=== PATIENT | male | born 1950 | race Two or more races ===

== ENCOUNTER 2020-05-10 14:41 | Inpatient (IN) | payer MEDICAID, OTHER ==
[~2020-05-10] VITALS: Ht 180.3 cm; Wt 67.4 kg
[2020-05-10] MEDS ORDERED: ACETAMINOPHEN 650MG SUPP PR PRN (15:00)
[2020-05-10] MEDS ORDERED: LACTATED RINGERS 1,800 ML IV ONE (15:00)
[2020-05-10] MEDS ORDERED: CEFTRIAXONE 1 G PREMIX 50 ML IV ONE (15:45)
[2020-05-10 16:39] LABS: CHLORIDE 106 mEq/L (98-107)
[2020-05-10 16:41] LABS: BASOPHILS % 0.6 % (0.0-2.0); HEMATOCRIT. 36.1 % (42.0-52.0); HEMOGLOBIN. 12.2 g/dL (14.0-18.0); MEAN CORPUSCULAR HEMOGLOBIN 30.9 pg (28.0-32.0); MEAN CORPUSCULAR VOLUME 91.5 fL (80.0-94.0); MEAN PLATELET VOLUME 9.4 fl (7.4-10.4); MONOCYTES % 13.3 % (2.0-8.0); NEUTROPHILS % 76.1 % (40.0-76.0); PLATELET 122 x1000/uL (130-400); RED BLOOD CELL COUNT 3.95 mill/uL (4.7-6.1); RED CELL DISTRIBUTION WIDTH 17.7 % (11.6-14.6)
[2020-05-10 16:44] LABS: ETHANOL BLOOD < 10 mg/dL
[2020-05-10 16:45] LABS: INR 1.2; PARTIAL THROMBOPLASTIN TIME 33.6 sec (23.4-31.0); PROTHROMBIN TIME 12.4 sec (9.6-11.0)
[2020-05-10 18:04] LABS: CLARITY URINE CLEAR (CLEAR); COLOR URINE YELLOW (YELLOW); KETONES URINE NEGATIVE (NEGATIVE); LEUKOCYTE ESTERASE URINE 2+ (NEGATIVE); NITRITE URINE POSITIVE (NEGATIVE); OCCULT BLOOD URINE NEGATIVE (NEGATIVE); PH URINE 5.5 (4.5-8.0); PROTEIN URINE NEGATIVE (NEGATIVE)
[2020-05-10 18:23] LABS: *AMPHETAMINES SCREEN URINE NEGATIVE (NEGATIVE); CANNABINOID URINE SCREEN NEGATIVE (NEGATIVE)
[2020-05-10 18:24] LABS: *BARBITURATES SCREEN URINE NEGATIVE (NEGATIVE); *BENZODIAZEPINES SCREEN URINE NEGATIVE (NEGATIVE); *COCAINE SCREEN URINE NEGATIVE (NEGATIVE); METHADONE URINE SCREEN NEGATIVE (NEGATIVE)
[2020-05-10 18:25] LABS: OPIATES URINE SCREEN NEGATIVE (NEGATIVE); PHENCYCLIDINE URINE SCREEN NEGATIVE (NEGATIVE)
[2020-05-10] MEDS ORDERED: PIPERACILLIN/TAZOBACTAM 3.375GM/50ML PREMIX IV ONE (18:30)
[2020-05-10] MEDS ORDERED: VANCOMYCIN 1 G PREMIX 200 ML IV NR (19:00)
[2020-05-10] MEDS ORDERED: PIPERACILLIN/TAZ 3.375G PREMIX 50 ML IV NR (19:00)
[2020-05-11] MEDS ORDERED: DOCUSATE SODIUM 100MG CAPSULE PO PRN
[2020-05-11] MEDS ORDERED: HYDROCODONE/ACETAMINOPHEN 5/325MG TABLET PO PRN
[2020-05-11] MEDS ORDERED: IPRATROPIUM/ALBUTEROL 0.5-3(2.5)MG/3ML NEB HHN PRN
[2020-05-11] MEDS ORDERED: LEVOFLOXACIN 500MG PREMIX 100 ML IV NR (01:00)
[2020-05-11] MEDS: ENOXAPARIN 30MG/0.3ML SYR SUBCUT SCH (03:55)
[2020-05-11 06:06] LABS: HEMATOCRIT. 36.1 % (42.0-52.0); HEMOGLOBIN. 12.3 g/dL (14.0-18.0); MEAN CORPUSCULAR HEMOGLOBIN 31.1 pg (28.0-32.0); MEAN CORPUSCULAR VOLUME 91.2 fL (80.0-94.0); MEAN PLATELET VOLUME 9.1 fl (7.4-10.4); PLATELET 108 x1000/uL (130-400); RED BLOOD CELL COUNT 3.96 mill/uL (4.7-6.1); RED CELL DISTRIBUTION WIDTH 17.8 % (11.6-14.6)
[2020-05-11 06:16] LABS: CHLORIDE 105 mEq/L (98-107)
[2020-05-11 06:25] LABS: LDL CHOLESTEROL 26 mg/dL (5-100); PHOSPHORUS 3.1 mg/dL (2.5-4.9)
[2020-05-11 06:26] LABS: HDL CHOLESTEROL 72 mg/dL (40-59)
[2020-05-11 08:35] LABS: PLATELET ESTIMATE SLIGHTLY DECREASED
[2020-05-11] MEDS: PANTOPRAZOLE SODIUM 40 MG/VIAL IV SCH (10:04)
[2020-05-11 13:34] LABS: CARCINO EMBRYONIC ANTIGEN 2.1 ng/ml; PROSTRATE SPECIFIC AG TOTAL 1.96 ng/mL (0.0-4.0)
[2020-05-12] VITALS (7 sets, daily range): BP systolic 89–108; BP diastolic 60–77
[2020-05-12] MEDS: LEVOFLOXACIN 250MG PREMIX 50 ML IV SCH (02:34)
[2020-05-12] MEDS: ENOXAPARIN 30MG/0.3ML SYR SUBCUT SCH (02:34)
[2020-05-12 06:19] LABS: BASOPHILS % 0.4 % (0.0-2.0); HEMATOCRIT. 36.6 % (42.0-52.0); HEMOGLOBIN. 12.5 g/dL (14.0-18.0); LYMPHOCYTES % 7.6 % (20.0-50.0); MEAN CORPUSCULAR HEMOGLOBIN 31.2 pg (28.0-32.0); MEAN CORPUSCULAR VOLUME 91.7 fL (80.0-94.0); MEAN PLATELET VOLUME 10.7 fl (7.4-10.4); MONOCYTES % 7.8 % (2.0-8.0); NEUTROPHILS % 84.2 % (40.0-76.0); PLATELET 91 x1000/uL (130-400); RED BLOOD CELL COUNT 3.99 mill/uL (4.7-6.1); RED CELL DISTRIBUTION WIDTH 17.6 % (11.6-14.6)
[2020-05-12 06:29] LABS: CHLORIDE 104 mEq/L (98-107)
[2020-05-12 06:40] LABS: TOTAL IRON BINDING CAPACITY 235 ug/dL (250-450)
[2020-05-12 07:05] LABS: VITAMIN B12 SERUM 1540 pg/mL (211-911)
[2020-05-12] MEDS: PANTOPRAZOLE SODIUM 40 MG/VIAL IV SCH (08:52)
[2020-05-12] MEDS ORDERED: DEPER5 MT (14:13)
[2020-05-12] MEDS ORDERED: ATOR10TA69 MT (14:13)
[2020-05-12] MEDS ORDERED: TERA10CA4 MT (14:13)
[2020-05-12] MEDS ORDERED: LEVE10006 PO (14:13)
[2020-05-12] MEDS ORDERED: TAMS-11 MT (14:13)
[2020-05-13] VITALS: BP 111/60
[2020-05-13] MEDS: LEVOFLOXACIN 250MG PREMIX 50 ML IV SCH (00:17)
[2020-05-13] MEDS: ENOXAPARIN 30MG/0.3ML SYR SUBCUT SCH (00:18)
[2020-05-13 04:00] VITALS: BP 110/70
[2020-05-13 06:54] LABS: BASOPHILS % 0.6 % (0.0-2.0); HEMATOCRIT. 34.6 % (42.0-52.0); HEMOGLOBIN. 11.8 g/dL (14.0-18.0); LYMPHOCYTES % 17.7 % (20.0-50.0); MEAN CORPUSCULAR VOLUME 90.6 fL (80.0-94.0); MONOCYTES % 8.5 % (2.0-8.0); NEUTROPHILS % 73.2 % (40.0-76.0); PLATELET 106 x1000/uL (130-400); RED BLOOD CELL COUNT 3.82 mill/uL (4.7-6.1); RED CELL DISTRIBUTION WIDTH 17.1 % (11.6-14.6)
[2020-05-13 06:59] LABS: CHLORIDE 106 mEq/L (98-107)
[2020-05-13 08:00] VITALS: BP 104/66
[2020-05-13] MEDS: PANTOPRAZOLE SODIUM 40 MG/VIAL IV SCH (09:23)
[2020-05-13 12:00] VITALS: BP 99/63
[2020-05-13] MEDS: DEXAMETHASONE 2MG TABLET PO SCH (12:33)
[2020-05-13 16:00] VITALS: BP 100/67
[2020-05-13 20:00] VITALS: BP 100/77
[2020-05-14] VITALS: BP 120/70
[2020-05-14] MEDS: LEVOFLOXACIN 250MG PREMIX 50 ML IV SCH (00:28)
[2020-05-14] MEDS: ENOXAPARIN 30MG/0.3ML SYR SUBCUT SCH (00:28)
[2020-05-14 04:00] VITALS: BP 110/70
[2020-05-14 08:00] VITALS: BP 100/61
[2020-05-14 09:40] LABS: HEMATOCRIT. 34.4 % (42.0-52.0); MEAN CORPUSCULAR HEMOGLOBIN 31.7 pg (28.0-32.0); MEAN CORPUSCULAR VOLUME 90.9 fL (80.0-94.0); MEAN PLATELET VOLUME 9.8 fl (7.4-10.4); PLATELET 126 x1000/uL (130-400); RED BLOOD CELL COUNT 3.78 mill/uL (4.7-6.1); RED CELL DISTRIBUTION WIDTH 17.4 % (11.6-14.6)
[2020-05-14] MEDS: DEXAMETHASONE 2MG TABLET PO SCH (10:08)
[2020-05-14] MEDS: PANTOPRAZOLE SODIUM 40 MG/VIAL IV SCH (10:09)
[2020-05-14 10:38] LABS: CHLORIDE 106 mEq/L (98-107)
[2020-05-14 11:32] LABS: PLATELET ESTIMATE SLIGHTLY DECREASED
[2020-05-14 12:00] VITALS: BP 100/61
[2020-05-14 16:00] VITALS: BP 100/65
[2020-05-14] MEDS: FERROUS SULFATE 325MG TABLET PO SCH (19:39)
[2020-05-14 20:00] VITALS: BP 109/72
[2020-05-15] VITALS: BP 133/71
[2020-05-15] MEDS: LEVOFLOXACIN 250MG PREMIX 50 ML IV SCH (00:44)
[2020-05-15] MEDS ORDERED: ENOXAPARIN 40MG/0.4ML SYR SUBCUT SCH (01:00)
[2020-05-15 04:00] VITALS: BP 101/66
[2020-05-15 08:00] VITALS: BP 100/64
[2020-05-15] MEDS: DEXAMETHASONE 2MG TABLET PO SCH (10:09)
[2020-05-15] MEDS: PANTOPRAZOLE SODIUM 40 MG/VIAL IV SCH (10:09)
[2020-05-15] MEDS: FERROUS SULFATE 325MG TABLET PO SCH (10:09)
[2020-05-15 12:00] VITALS: BP 100/64
[2020-05-15 16:00] VITALS: BP 105/70
[2020-05-15] MEDS: ENOXAPARIN 40MG/0.4ML SYR SUBCUT SCH (21:34)
[2020-05-16] VITALS: BP 108/72
[2020-05-16] MEDS ORDERED: LORAZEPAM 2MG/ML CPJ IV PRN ×3 (04:45→13:15)
[2020-05-16] MEDS ORDERED: LORAZEPAM 2MG/ML CPJ ONE (04:48)
[2020-05-16] MEDS ORDERED: LORAZEPAM 2MG/ML CPJ IV NR ×2 (05:00→05:15)
[2020-05-16] MEDS ORDERED: LEVETIRACETAM 1,000 MG in SODIUM CHLORIDE 0.9% 100 ML IV SCH (06:00)
[2020-05-16] MEDS: ACETAMINOPHEN 650MG SUPP PR PRN ×4 (06:36→20:40)
[2020-05-16] MEDS: PANTOPRAZOLE 40MG DR TABLET PO SCH (07:10)
[2020-05-16 08:00] VITALS: BP 154/92
[2020-05-16] MEDS: FERROUS SULFATE 325MG TABLET PO SCH (09:00)
[2020-05-16] MEDS: DEXAMETHASONE 2MG TABLET PO SCH (09:00)
[2020-05-16 12:00] VITALS: BP 147/87
[2020-05-16 13:52] LABS: CHLORIDE 103 mEq/L (98-107)
[2020-05-16] MEDS ORDERED: PIPERACILLIN/TAZOBACTAM 3.375 G/VIAL IV SCH (14:00)
[2020-05-16] MEDS: PIPERACILLIN/TAZOBACTAM 3.375 G in DEXT 5% WATER 100 ML IV SCH ×2 (14:22→22:43)
[2020-05-16] MEDS ORDERED: VANCOMYCIN 1250MG in DEXTROSE 5% WATER 250ML IV NR (15:00)
[2020-05-16 16:00] VITALS: BP 128/74
[2020-05-16] MEDS: ATORVASTATIN CALCIUM 10MG TABLET PO SCH (17:00)
[2020-05-16] MEDS: DIVALPROEX SODIUM 500MG DR TABLET PO SCH (17:00)
[2020-05-16 17:09] LABS: HEMATOCRIT. 35.9 % (42.0-52.0); MEAN CORPUSCULAR HEMOGLOBIN 30.6 pg (28.0-32.0); MEAN CORPUSCULAR VOLUME 91.3 fL (80.0-94.0); MEAN PLATELET VOLUME 9.8 fl (7.4-10.4); PLATELET 196 x1000/uL (130-400); RED BLOOD CELL COUNT 3.93 mill/uL (4.7-6.1); RED CELL DISTRIBUTION WIDTH 17.6 % (11.6-14.6)
[2020-05-16 18:18] LABS: PLATELET ESTIMATE NORMAL
[2020-05-16 20:00] VITALS: BP_SYST 88; BP_SYST 94; BP_DIAS 54; BP_DIAS 59
[2020-05-16] MEDS ORDERED: LEVETIRACETAM 500MG TABLET PO SCH (21:00)
[2020-05-16] MEDS: LEVETIRACETAM 1,500 MG in SODIUM CHLORIDE 0.9% 100 ML IV SCH (21:42)
[2020-05-16] MEDS: ENOXAPARIN 40MG/0.4ML SYR SUBCUT SCH (21:42)
[2020-05-16 22:13] LABS: BG BASE EXCESS 3.6 mmol/L (-2.0-2.0); BG CARBOXYHEMOGLOBIN 0.3 % (0.5-1.5); BG DEOXYHEMOGLOBIN 16.4 % (0.0-5.0); BG FRACTION INSPIRED OXYGEN 100; BG HCO3 ACT 27.4 mmol/L (22.0-26.0); BG METHEMOGLOBIN 0.3 % (0.0-1.5); BG OXYGEN SATURATION 83.5 % (92.0-98.5); BG PCO2 38.5 mmHg (35.0-45.0); BG PO2 44.1 mmHg (75.0-100.0); BG SAMPLE SITE RIGHT RADIAL; BG TOTAL HEMOGLOBIN 12.6 g/dL (12.0-18.0); BG VENT MODE MASK - NRB
[2020-05-16] MEDS: VANCOMYCIN 1 G PREMIX 200 ML IV SCH (22:43)
[2020-05-17] VITALS (24 sets, daily range): BP systolic 88–122; BP diastolic 32–91
[2020-05-17] MEDS: PANTOPRAZOLE 40MG DR TABLET PO SCH (06:30)
[2020-05-17] MEDS: PIPERACILLIN/TAZOBACTAM 3.375 G in DEXT 5% WATER 100 ML IV SCH ×3 (06:53→23:47)
[2020-05-17] MEDS: DEXAMETHASONE 2MG TABLET PO SCH (09:00)
[2020-05-17] MEDS: DIVALPROEX SODIUM 500MG DR TABLET PO SCH ×2 (09:00→17:00)
[2020-05-17] MEDS: FERROUS SULFATE 325MG TABLET PO SCH (09:00)
[2020-05-17] MEDS: TAMSULOSIN HCL 0.4MG SR CAPSULE PO SCH (09:00)
[2020-05-17] MEDS ORDERED: PHENYLEPHRINE 50 MG in DEXT 5% WATER 245 ML IV PRN (10:00)
[2020-05-17] MEDS ORDERED: LIDOCAINE HCL 1% 20ML VIAL (Pyxis) INJ ONE (10:51)
[2020-05-17] MEDS: LEVETIRACETAM 1,500 MG in SODIUM CHLORIDE 0.9% 100 ML IV SCH ×2 (11:14→22:22)
[2020-05-17] MEDS: SODIUM CHLORIDE 0.9% 1,000 ML IV SCH (11:16)
[2020-05-17] MEDS: VANCOMYCIN 1 G PREMIX 200 ML IV SCH (13:12)
[2020-05-17] MEDS: ATORVASTATIN CALCIUM 10MG TABLET PO SCH (17:00)
[2020-05-17 18:55] LABS: HEMATOCRIT. 42.8 % (42.0-52.0); MEAN CORPUSCULAR HEMOGLOBIN 30.4 pg (28.0-32.0); MEAN CORPUSCULAR VOLUME 93.2 fL (80.0-94.0); PLATELET 252 x1000/uL (130-400); RED BLOOD CELL COUNT 4.59 mill/uL (4.7-6.1); RED CELL DISTRIBUTION WIDTH 17.9 % (11.6-14.6)
[2020-05-17 18:56] LABS: CHLORIDE 106 mEq/L (98-107)
[2020-05-17 19:20] LABS: PLATELET ESTIMATE NORMAL
[2020-05-17] MEDS: ENOXAPARIN 40MG/0.4ML SYR SUBCUT SCH (21:44)
[2020-05-17] MEDS: ACETAMINOPHEN 650MG SUPP PR PRN (21:44)
[2020-05-18] VITALS (7 sets, daily range): BP systolic 105–142; BP diastolic 60–82
[2020-05-18] MEDS: VANCOMYCIN 1 G PREMIX 200 ML IV SCH ×2 (00:20→12:28)
[2020-05-18] MEDS: SODIUM CHLORIDE 0.9% 1,000 ML IV SCH ×2 (00:24→14:40)
[2020-05-18] MEDS: PANTOPRAZOLE 40MG DR TABLET PO SCH (06:08)
[2020-05-18 06:31] LABS: HEMATOCRIT. 30.6 % (42.0-52.0); HEMOGLOBIN. 10.2 g/dL (14.0-18.0); MEAN CORPUSCULAR HEMOGLOBIN 30.3 pg (28.0-32.0); MEAN CORPUSCULAR VOLUME 90.7 fL (80.0-94.0); MEAN PLATELET VOLUME 9.4 fl (7.4-10.4); PLATELET 258 x1000/uL (130-400); RED BLOOD CELL COUNT 3.38 mill/uL (4.7-6.1); RED CELL DISTRIBUTION WIDTH 17.4 % (11.6-14.6)
[2020-05-18 07:06] LABS: CHLORIDE 109 mEq/L (98-107)
[2020-05-18] MEDS: PIPERACILLIN/TAZOBACTAM 3.375 G in DEXT 5% WATER 100 ML IV SCH ×3 (07:24→23:04)
[2020-05-18 08:09] LABS: BG BASE EXCESS 0.1 mmol/L (-2.0-2.0); BG CARBOXYHEMOGLOBIN 0.1 % (0.5-1.5); BG FRACTION INSPIRED OXYGEN 100; BG HCO3 ACT 23.1 mmol/L (22.0-26.0); BG METHEMOGLOBIN 0.2 % (0.0-1.5); BG OXYHEMOGLOBIN 96.7 % (94.0-97.0); BG PCO2 32.3 mmHg (35.0-45.0); BG PH 7.473 (7.350-7.450); BG PO2 88.8 mmHg (75.0-100.0); BG SAMPLE SITE LEFT RADIAL; BG TOTAL HEMOGLOBIN 11.4 g/dL (12.0-18.0); BG TOTAL RESPIRATORY RATE 23 b/min; BG VENT MODE MASK - BIPAP
[2020-05-18 08:19] LABS: VALPROIC ACID < 3.0 ug/mL (50-100)
[2020-05-18 08:28] LABS: PLATELET ESTIMATE NORMAL
[2020-05-18] MEDS: TAMSULOSIN HCL 0.4MG SR CAPSULE PO SCH ×2 (09:00→10:51)
[2020-05-18] MEDS: FERROUS SULFATE 325MG TABLET PO SCH (09:05)
[2020-05-18] MEDS: LEVETIRACETAM 1,500 MG in SODIUM CHLORIDE 0.9% 100 ML IV SCH ×2 (09:05→22:04)
[2020-05-18] MEDS: DEXAMETHASONE 2MG TABLET PO SCH (09:05)
[2020-05-18] MEDS: DIVALPROEX SODIUM 500MG DR TABLET PO SCH ×2 (09:05→17:26)
[2020-05-18] MEDS ORDERED: DEXT 5%/0.45% NACL 500ML 500 ML IV ONE (15:00)
[2020-05-18] MEDS: ATORVASTATIN CALCIUM 10MG TABLET PO SCH (17:26)
[2020-05-18] MEDS: ENOXAPARIN 40MG/0.4ML SYR SUBCUT SCH (22:04)
[2020-05-18] MEDS: FAMOTIDINE 20MG TABLET PO SCH (22:04)
[2020-05-18] MEDS: ACETAMINOPHEN 650MG SUPP PR PRN (23:12)
[2020-05-19] VITALS: BP 107/74
[2020-05-19] MEDS: VANCOMYCIN 1 G PREMIX 200 ML IV SCH ×2 (00:46→12:33)
[2020-05-19 04:00] VITALS: BP 99/75
[2020-05-19] MEDS: PIPERACILLIN/TAZOBACTAM 3.375 G in DEXT 5% WATER 100 ML IV SCH ×3 (07:10→22:57)
[2020-05-19] MEDS: FAMOTIDINE 20MG TABLET PO SCH ×2 (07:11→21:52)
[2020-05-19 08:00] VITALS: BP 117/79
[2020-05-19 08:45] LABS: CHLORIDE 109 mEq/L (98-107)
[2020-05-19] MEDS: DEXAMETHASONE 2MG TABLET PO SCH (08:48)
[2020-05-19] MEDS: FERROUS SULFATE 325MG TABLET PO SCH (08:48)
[2020-05-19] MEDS: LEVETIRACETAM 1,500 MG in SODIUM CHLORIDE 0.9% 100 ML IV SCH ×2 (08:48→21:52)
[2020-05-19] MEDS: DIVALPROEX SODIUM 500MG DR TABLET PO SCH ×2 (08:48→17:47)
[2020-05-19] MEDS: TAMSULOSIN HCL 0.4MG SR CAPSULE PO SCH (08:51)
[2020-05-19 08:56] LABS: BASOPHILS % 0.3 % (0.0-2.0); EOSINOPHILS % 0.1 % (0.0-5.0); HEMATOCRIT. 29.9 % (42.0-52.0); LYMPHOCYTES % 8.2 % (20.0-50.0); MEAN CORPUSCULAR HEMOGLOBIN 30.4 pg (28.0-32.0); MEAN CORPUSCULAR VOLUME 91.1 fL (80.0-94.0); MEAN PLATELET VOLUME 8.8 fl (7.4-10.4); MONOCYTES % 3.1 % (2.0-8.0); NEUTROPHILS % 88.3 % (40.0-76.0); PLATELET 347 x1000/uL (130-400); RED BLOOD CELL COUNT 3.28 mill/uL (4.7-6.1); RED CELL DISTRIBUTION WIDTH 17.4 % (11.6-14.6)
[2020-05-19 12:00] VITALS: BP 124/84
[2020-05-19] MEDS ORDERED: VANCOMYCIN 1250MG in DEXTROSE 5% WATER 250ML IV SCH (14:00)
[2020-05-19 16:00] VITALS: BP 112/79
[2020-05-19] MEDS: ATORVASTATIN CALCIUM 10MG TABLET PO SCH (17:47)
[2020-05-19] MEDS: LAMOTRIGINE 25MG TABLET PO SCH (17:47)
[2020-05-19 20:00] VITALS: BP 115/75
[2020-05-19] MEDS: ENOXAPARIN 40MG/0.4ML SYR SUBCUT SCH (21:51)
[2020-05-20] VITALS: BP 121/73
[2020-05-20 04:00] VITALS: BP 114/75
[2020-05-20] MEDS: FAMOTIDINE 20MG TABLET PO SCH ×2 (06:34→21:45)
[2020-05-20] MEDS: PIPERACILLIN/TAZOBACTAM 3.375 G in DEXT 5% WATER 100 ML IV SCH ×3 (06:35→23:34)
[2020-05-20 08:00] VITALS: BP 110/74
[2020-05-20] MEDS: FERROUS SULFATE 325MG TABLET PO SCH (09:30)
[2020-05-20] MEDS: DEXAMETHASONE 2MG TABLET PO SCH (09:31)
[2020-05-20] MEDS: TAMSULOSIN HCL 0.4MG SR CAPSULE PO SCH (09:31)
[2020-05-20] MEDS: LAMOTRIGINE 25MG TABLET PO SCH (09:31)
[2020-05-20] MEDS: DIVALPROEX SODIUM 500MG DR TABLET PO SCH ×2 (09:31→16:30)
[2020-05-20] MEDS: LEVETIRACETAM 1,500 MG in SODIUM CHLORIDE 0.9% 100 ML IV SCH ×2 (09:36→21:45)
[2020-05-20 11:05] LABS: HEMATOCRIT. 29.4 % (42.0-52.0); HEMOGLOBIN. 9.9 g/dL (14.0-18.0); MEAN CORPUSCULAR HEMOGLOBIN 30.8 pg (28.0-32.0); MEAN CORPUSCULAR VOLUME 91.2 fL (80.0-94.0); MEAN PLATELET VOLUME 8.6 fl (7.4-10.4); PLATELET 367 x1000/uL (130-400); RED BLOOD CELL COUNT 3.23 mill/uL (4.7-6.1); RED CELL DISTRIBUTION WIDTH 16.7 % (11.6-14.6)
[2020-05-20 11:15] LABS: CHLORIDE 109 mEq/L (98-107)
[2020-05-20 12:00] VITALS: BP 120/83
[2020-05-20 16:00] VITALS: BP 124/84
[2020-05-20] MEDS: ATORVASTATIN CALCIUM 10MG TABLET PO SCH (16:30)
[2020-05-20 20:33] VITALS: BP 120/76
[2020-05-20] MEDS: ENOXAPARIN 40MG/0.4ML SYR SUBCUT SCH (21:45)
[2020-05-21 00:15] VITALS: BP 126/76
[2020-05-21 04:00] VITALS: BP 113/68
[2020-05-21] MEDS: FAMOTIDINE 20MG TABLET PO SCH ×2 (06:24→20:25)
[2020-05-21] MEDS: PIPERACILLIN/TAZOBACTAM 3.375 G in DEXT 5% WATER 100 ML IV SCH (06:25)
[2020-05-21 06:55] LABS: PLATELET ESTIMATE NORMAL
[2020-05-21 07:24] LABS: CHLORIDE 109 mEq/L (98-107)
[2020-05-21 07:41] LABS: HEMATOCRIT. 29.6 % (42.0-52.0); HEMOGLOBIN. 10.4 g/dL (14.0-18.0); MEAN CORPUSCULAR HEMOGLOBIN 32.2 pg (28.0-32.0); MEAN CORPUSCULAR VOLUME 91.1 fL (80.0-94.0); MEAN PLATELET VOLUME 9.1 fl (7.4-10.4); PLATELET 366 x1000/uL (130-400); RED BLOOD CELL COUNT 3.25 mill/uL (4.7-6.1); RED CELL DISTRIBUTION WIDTH 17.1 % (11.6-14.6)
[2020-05-21 08:00] VITALS: BP 113/72
[2020-05-21 08:19] LABS: BG BASE EXCESS 1.9 mmol/L (-2.0-2.0); BG CARBOXYHEMOGLOBIN 0.3 % (0.5-1.5); BG DEOXYHEMOGLOBIN 8.3 % (0.0-5.0); BG FRACTION INSPIRED OXYGEN 100; BG HCO3 ACT 25.2 mmol/L (22.0-26.0); BG METHEMOGLOBIN 0.1 % (0.0-1.5); BG OXYGEN SATURATION 91.7 % (92.0-98.5); BG OXYHEMOGLOBIN 91.3 % (94.0-97.0); BG PCO2 34.4 mmHg (35.0-45.0); BG PH 7.482 (7.350-7.450); BG PO2 64.5 mmHg (75.0-100.0); BG SAMPLE SITE RIGHT RADIAL; BG TOTAL HEMOGLOBIN 10.2 g/dL (12.0-18.0); BG VENT MODE MASK - BIPAP
[2020-05-21] MEDS: LEVETIRACETAM 1,500 MG in SODIUM CHLORIDE 0.9% 100 ML IV SCH ×2 (09:07→21:44)
[2020-05-21] MEDS: DIVALPROEX SODIUM 500MG DR TABLET PO SCH ×2 (09:08→17:24)
[2020-05-21] MEDS: LAMOTRIGINE 25MG TABLET PO SCH (09:08)
[2020-05-21] MEDS: DEXAMETHASONE 2MG TABLET PO SCH (09:08)
[2020-05-21] MEDS: FERROUS SULFATE 325MG TABLET PO SCH (09:08)
[2020-05-21] MEDS: TAMSULOSIN HCL 0.4MG SR CAPSULE PO SCH (09:14)
[2020-05-21 12:00] VITALS: BP 111/71
[2020-05-21 13:51] LABS: PLATELET ESTIMATE NORMAL
[2020-05-21 16:00] VITALS: BP 96/67
[2020-05-21] MEDS: ATORVASTATIN CALCIUM 10MG TABLET PO SCH (17:24)
[2020-05-21 20:00] VITALS: BP 94/61
[2020-05-21] MEDS: ENOXAPARIN 40MG/0.4ML SYR SUBCUT SCH (20:26)
[2020-05-22] VITALS: BP 108/75
[2020-05-22 04:00] VITALS: BP_SYST 108; BP_SYST 120; BP_DIAS 75; BP_DIAS 78
[2020-05-22] MEDS: FAMOTIDINE 20MG TABLET PO SCH ×2 (07:04→21:45)
[2020-05-22 08:00] VITALS: BP 105/68
[2020-05-22] MEDS: FERROUS SULFATE 325MG TABLET PO SCH (08:55)
[2020-05-22] MEDS: DIVALPROEX SODIUM 500MG DR TABLET PO SCH ×2 (08:55→17:58)
[2020-05-22] MEDS: DEXAMETHASONE 2MG TABLET PO SCH (08:55)
[2020-05-22] MEDS: LAMOTRIGINE 25MG TABLET PO SCH (08:55)
[2020-05-22] MEDS: TAMSULOSIN HCL 0.4MG SR CAPSULE PO SCH (08:58)
[2020-05-22] MEDS: LEVETIRACETAM 1,500 MG in SODIUM CHLORIDE 0.9% 100 ML IV SCH ×2 (10:32→21:45)
[2020-05-22 12:00] VITALS: BP 113/72
[2020-05-22 16:00] VITALS: BP 103/73
[2020-05-22] MEDS: ATORVASTATIN CALCIUM 10MG TABLET PO SCH (17:59)
[2020-05-22 19:00] VITALS: BP 102/69
[2020-05-22] MEDS: ENOXAPARIN 40MG/0.4ML SYR SUBCUT SCH (21:53)
[2020-05-23] VITALS: BP 110/68
[2020-05-23 04:00] VITALS: BP 103/73
[2020-05-23] MEDS: FAMOTIDINE 20MG TABLET PO SCH ×2 (05:38→22:47)
[2020-05-23 08:00] VITALS: BP 107/70
[2020-05-23] MEDS: ACETAMINOPHEN 325MG TABLET PO PRN (08:13)
[2020-05-23] MEDS: DIVALPROEX SODIUM 500MG DR TABLET PO SCH ×2 (08:13→16:23)
[2020-05-23] MEDS: LAMOTRIGINE 25MG TABLET PO SCH (08:13)
[2020-05-23] MEDS: TAMSULOSIN HCL 0.4MG SR CAPSULE PO SCH (08:14)
[2020-05-23] MEDS: FERROUS SULFATE 325MG TABLET PO SCH (08:14)
[2020-05-23] MEDS: LEVETIRACETAM 1,500 MG in SODIUM CHLORIDE 0.9% 100 ML IV SCH ×2 (09:52→22:47)
[2020-05-23 12:00] VITALS: BP 99/64
[2020-05-23 16:00] VITALS: BP 98/64
[2020-05-23] MEDS: ATORVASTATIN CALCIUM 10MG TABLET PO SCH (16:26)
[2020-05-23 20:50] VITALS: BP 110/71
[2020-05-23] MEDS: ENOXAPARIN 40MG/0.4ML SYR SUBCUT SCH (22:47)
[2020-05-24 00:20] VITALS: BP 148/69
[2020-05-24 04:00] VITALS: BP 101/70
[2020-05-24] MEDS: FAMOTIDINE 20MG TABLET PO SCH ×2 (06:48→21:53)
[2020-05-24 08:00] VITALS: BP 99/71
[2020-05-24] MEDS: DIVALPROEX SODIUM 500MG DR TABLET PO SCH ×2 (08:38→16:19)
[2020-05-24] MEDS: LAMOTRIGINE 25MG TABLET PO SCH (08:38)
[2020-05-24] MEDS: FERROUS SULFATE 325MG TABLET PO SCH (08:38)
[2020-05-24] MEDS: TAMSULOSIN HCL 0.4MG SR CAPSULE PO SCH (08:39)
[2020-05-24] MEDS: LEVETIRACETAM 1,500 MG in SODIUM CHLORIDE 0.9% 100 ML IV SCH ×2 (09:21→21:53)
[2020-05-24 12:00] VITALS: BP 92/60
[2020-05-24 16:00] VITALS: BP 122/69
[2020-05-24] MEDS: ATORVASTATIN CALCIUM 10MG TABLET PO SCH (16:20)
[2020-05-24 20:00] VITALS: BP 114/73
[2020-05-24] MEDS: ENOXAPARIN 40MG/0.4ML SYR SUBCUT SCH (21:54)
[2020-05-25 00:35] VITALS: BP 118/67
[2020-05-25] MEDS: FAMOTIDINE 20MG TABLET PO SCH ×2 (06:37→21:31)
[2020-05-25 07:44] LABS: BASOPHILS % 0.3 % (0.0-2.0); EOSINOPHILS % 0.3 % (0.0-5.0); HEMATOCRIT. 31.4 % (42.0-52.0); HEMOGLOBIN. 10.6 g/dL (14.0-18.0); LYMPHOCYTES % 8.8 % (20.0-50.0); MEAN CORPUSCULAR HEMOGLOBIN 31.1 pg (28.0-32.0); MEAN PLATELET VOLUME 9.2 fl (7.4-10.4); MONOCYTES % 4.9 % (2.0-8.0); NEUTROPHILS % 85.7 % (40.0-76.0); PLATELET 171 x1000/uL (130-400); RED BLOOD CELL COUNT 3.41 mill/uL (4.7-6.1); RED CELL DISTRIBUTION WIDTH 16.9 % (11.6-14.6)
[2020-05-25 08:27] LABS: CHLORIDE 111 mEq/L (98-107)
[2020-05-25] MEDS: LAMOTRIGINE 25MG TABLET PO SCH (09:00)
[2020-05-25] MEDS: LEVETIRACETAM 1,500 MG in SODIUM CHLORIDE 0.9% 100 ML IV SCH ×2 (09:13→22:33)
[2020-05-25] MEDS: FERROUS SULFATE 325MG TABLET PO SCH (09:14)
[2020-05-25] MEDS: TAMSULOSIN HCL 0.4MG SR CAPSULE PO SCH (09:14)
[2020-05-25] MEDS: DIVALPROEX SODIUM 500MG DR TABLET PO SCH ×2 (09:14→16:34)
[2020-05-25 11:41] LABS: BG BASE EXCESS 3.1 mmol/L (-2.0-2.0); BG CARBOXYHEMOGLOBIN 0.2 % (0.5-1.5); BG DEOXYHEMOGLOBIN 2.9 % (0.0-5.0); BG FRACTION INSPIRED OXYGEN 80; BG HCO3 ACT 26.1 mmol/L (22.0-26.0); BG METHEMOGLOBIN 0.3 % (0.0-1.5); BG OXYGEN SATURATION 97.1 % (92.0-98.5); BG OXYHEMOGLOBIN 96.6 % (94.0-97.0); BG PCO2 33.8 mmHg (35.0-45.0); BG PH 7.505 (7.350-7.450); BG PO2 99.5 mmHg (75.0-100.0); BG SAMPLE SITE RIGHT RADIAL; BG TOTAL HEMOGLOBIN 10.2 g/dL (12.0-18.0); BG TOTAL RESPIRATORY RATE 18 b/min; BG VENT MODE MASK - BIPAP
[2020-05-25 12:00] VITALS: BP 124/73
[2020-05-25 16:00] VITALS: BP 102/66
[2020-05-25] MEDS: ATORVASTATIN CALCIUM 10MG TABLET PO SCH (16:34)
[2020-05-25 20:00] VITALS: BP 106/69
[2020-05-25] MEDS: ENOXAPARIN 40MG/0.4ML SYR SUBCUT SCH (21:31)
[2020-05-25] MEDS: ACETAMINOPHEN 325MG TABLET PO PRN (22:33)
[2020-05-26] VITALS: BP 124/83
[2020-05-26 04:30] VITALS: BP 125/81
[2020-05-26] MEDS: FAMOTIDINE 20MG TABLET PO SCH ×2 (05:59→21:40)
[2020-05-26 08:00] VITALS: BP 113/74
[2020-05-26] MEDS: FERROUS SULFATE 325MG TABLET PO SCH (11:06)
[2020-05-26] MEDS: TAMSULOSIN HCL 0.4MG SR CAPSULE PO SCH (11:06)
[2020-05-26] MEDS: DIVALPROEX SODIUM 500MG DR TABLET PO SCH ×2 (11:06→17:15)
[2020-05-26] MEDS: LAMOTRIGINE 25MG TABLET PO SCH (11:06)
[2020-05-26 12:00] VITALS: BP 117/97
[2020-05-26] MEDS: LEVETIRACETAM 1,500 MG in SODIUM CHLORIDE 0.9% 100 ML IV SCH ×2 (14:08→22:34)
[2020-05-26 16:00] VITALS: BP 121/82
[2020-05-26] MEDS: ATORVASTATIN CALCIUM 10MG TABLET PO SCH (17:15)
[2020-05-26 20:28] VITALS: BP 108/74
[2020-05-26] MEDS: ENOXAPARIN 40MG/0.4ML SYR SUBCUT SCH (21:40)
[2020-05-27 00:25] VITALS: BP 117/74
[2020-05-27 04:00] VITALS: BP 118/84
[2020-05-27] MEDS: FAMOTIDINE 20MG TABLET PO SCH ×2 (06:17→10:34)
[2020-05-27 08:00] VITALS: BP 113/82
[2020-05-27] MEDS: LAMOTRIGINE 25MG TABLET PO SCH (10:34)
[2020-05-27] MEDS: LEVETIRACETAM 1,500 MG in SODIUM CHLORIDE 0.9% 100 ML IV SCH ×2 (10:34→22:52)
[2020-05-27] MEDS: FERROUS SULFATE 325MG TABLET PO SCH (10:35)
[2020-05-27] MEDS: TAMSULOSIN HCL 0.4MG SR CAPSULE PO SCH (10:35)
[2020-05-27] MEDS: DIVALPROEX SODIUM 500MG DR TABLET PO SCH ×2 (10:42→17:54)
[2020-05-27] MEDS ORDERED: POTASSIUM CHLORIDE INJ 40 MEQ in DEXT 5% WATER 250 ML IV ONE (13:45)
[2020-05-27] MEDS: ATORVASTATIN CALCIUM 10MG TABLET PO SCH (17:54)
[2020-05-27 20:00] VITALS: BP 117/80
[2020-05-27 21:04] LABS: BASOPHILS % 0.6 % (0.0-2.0); EOSINOPHILS % 0.8 % (0.0-5.0); HEMATOCRIT. 26.1 % (42.0-52.0); HEMOGLOBIN. 8.6 g/dL (14.0-18.0); LYMPHOCYTES % 13.3 % (20.0-50.0); MEAN CORPUSCULAR HEMOGLOBIN 30.2 pg (28.0-32.0); MEAN CORPUSCULAR VOLUME 91.8 fL (80.0-94.0); MEAN PLATELET VOLUME 8.1 fl (7.4-10.4); NEUTROPHILS % 79.3 % (40.0-76.0); PLATELET 188 x1000/uL (130-400); RED BLOOD CELL COUNT 2.84 mill/uL (4.7-6.1); RED CELL DISTRIBUTION WIDTH 16.8 % (11.6-14.6)
[2020-05-27 21:14] LABS: CHLORIDE 117 mEq/L (98-107)
[2020-05-27] MEDS: ENOXAPARIN 40MG/0.4ML SYR SUBCUT SCH (22:01)
[2020-05-28] VITALS: BP 162/55
[2020-05-28 04:00] VITALS: BP 113/52
[2020-05-28 07:01] LABS: BASOPHILS % 0.6 % (0.0-2.0); EOSINOPHILS % 1.3 % (0.0-5.0); HEMATOCRIT. 27.8 % (42.0-52.0); HEMOGLOBIN. 9.5 g/dL (14.0-18.0); LYMPHOCYTES % 14.7 % (20.0-50.0); MEAN CORPUSCULAR HEMOGLOBIN 31.4 pg (28.0-32.0); MEAN CORPUSCULAR VOLUME 92.3 fL (80.0-94.0); MEAN PLATELET VOLUME 8.8 fl (7.4-10.4); MONOCYTES % 5.2 % (2.0-8.0); NEUTROPHILS % 78.2 % (40.0-76.0); PLATELET 184 x1000/uL (130-400); RED BLOOD CELL COUNT 3.01 mill/uL (4.7-6.1)
[2020-05-28] MEDS: FAMOTIDINE 20MG TABLET PO SCH ×2 (07:10→21:36)
[2020-05-28 07:16] LABS: CHLORIDE 116 mEq/L (98-107)
[2020-05-28 08:00] VITALS: BP 119/72
[2020-05-28] MEDS: LEVETIRACETAM 1,500 MG in SODIUM CHLORIDE 0.9% 100 ML IV SCH ×2 (08:51→21:36)
[2020-05-28] MEDS: FERROUS SULFATE 325MG TABLET PO SCH (08:52)
[2020-05-28] MEDS: TAMSULOSIN HCL 0.4MG SR CAPSULE PO SCH (08:52)
[2020-05-28] MEDS: DIVALPROEX SODIUM 500MG DR TABLET PO SCH ×2 (08:52→16:34)
[2020-05-28] MEDS: LAMOTRIGINE 25MG TABLET PO SCH (08:52)
[2020-05-28] MEDS: FUROSEMIDE 20MG/2ML VIAL IVP SCH (11:02)
[2020-05-28 11:55] LABS: BG BASE EXCESS 0.9 mmol/L (-2.0-2.0); BG CARBOXYHEMOGLOBIN 0.3 % (0.5-1.5); BG FRACTION INSPIRED OXYGEN 60; BG HCO3 ACT 24.1 mmol/L (22.0-26.0); BG METHEMOGLOBIN 0.2 % (0.0-1.5); BG OXYHEMOGLOBIN 95.5 % (94.0-97.0); BG PCO2 32.6 mmHg (35.0-45.0); BG PH 7.486 (7.350-7.450); BG PO2 84.6 mmHg (75.0-100.0); BG SAMPLE SITE RIGHT RADIAL; BG TOTAL HEMOGLOBIN 8.9 g/dL (12.0-18.0); BG TOTAL RESPIRATORY RATE 27 b/min; BG VENT MODE MASK - BIPAP
[2020-05-28 12:00] VITALS: BP 116/81
[2020-05-28 16:00] VITALS: BP 104/75
[2020-05-28] MEDS: ATORVASTATIN CALCIUM 10MG TABLET PO SCH (16:34)
[2020-05-28 20:00] VITALS: BP 132/89
[2020-05-28] MEDS: ENOXAPARIN 40MG/0.4ML SYR SUBCUT SCH (21:41)
[2020-05-29] VITALS: BP 126/71
[2020-05-29] MEDS: ACETAMINOPHEN 325MG TABLET PO PRN ×2 (01:33→12:54)
[2020-05-29 04:00] VITALS: BP 107/72
[2020-05-29] MEDS: FAMOTIDINE 20MG TABLET PO SCH ×2 (05:40→21:55)
[2020-05-29 06:30] LABS: BASOPHILS % 0.5 % (0.0-2.0); EOSINOPHILS % 1.5 % (0.0-5.0); HEMATOCRIT. 26.9 % (42.0-52.0); HEMOGLOBIN. 9.2 g/dL (14.0-18.0); MEAN CORPUSCULAR HEMOGLOBIN 32.1 pg (28.0-32.0); MEAN CORPUSCULAR VOLUME 93.3 fL (80.0-94.0); MEAN PLATELET VOLUME 8.6 fl (7.4-10.4); MONOCYTES % 4.5 % (2.0-8.0); NEUTROPHILS % 84.5 % (40.0-76.0); PLATELET 201 x1000/uL (130-400); RED BLOOD CELL COUNT 2.88 mill/uL (4.7-6.1); RED CELL DISTRIBUTION WIDTH 16.6 % (11.6-14.6)
[2020-05-29 07:07] LABS: CHLORIDE 114 mEq/L (98-107)
[2020-05-29 08:00] VITALS: BP 120/87
[2020-05-29] MEDS: DIVALPROEX SODIUM 500MG DR TABLET PO SCH ×2 (08:59→16:49)
[2020-05-29] MEDS: LAMOTRIGINE 25MG TABLET PO SCH (08:59)
[2020-05-29] MEDS: FERROUS SULFATE 325MG TABLET PO SCH (09:00)
[2020-05-29] MEDS: TAMSULOSIN HCL 0.4MG SR CAPSULE PO SCH (09:00)
[2020-05-29] MEDS: FUROSEMIDE 20MG/2ML VIAL IVP SCH (09:00)
[2020-05-29] MEDS: LEVETIRACETAM 1,500 MG in SODIUM CHLORIDE 0.9% 100 ML IV SCH ×2 (09:00→22:30)
[2020-05-29 12:00] VITALS: BP 108/81
[2020-05-29 16:00] VITALS: BP 108/77
[2020-05-29] MEDS: ATORVASTATIN CALCIUM 10MG TABLET PO SCH (16:49)
[2020-05-29] MEDS: CEFEPIME 1,000 MG in DEXTROSE 5% WATER 50 ML IV SCH (17:14)
[2020-05-29] MEDS: VANCOMYCIN 1 G PREMIX 200 ML IV SCH (17:15)
[2020-05-29 20:49] VITALS: BP 91/61
[2020-05-29] MEDS ORDERED: CEFEPIME HCL 1000MG/VIAL INJ IM SCH (21:00)
[2020-05-29] MEDS: ENOXAPARIN 40MG/0.4ML SYR SUBCUT SCH (21:56)
[2020-05-30] VITALS (7 sets, daily range): BP systolic 90–144; BP diastolic 58–69
[2020-05-30] MEDS: VANCOMYCIN 1 G PREMIX 200 ML IV SCH ×3 (00:12→18:25)
[2020-05-30] MEDS: CEFEPIME 1,000 MG in DEXTROSE 5% WATER 50 ML IV SCH ×2 (03:53→15:48)
[2020-05-30] MEDS: FAMOTIDINE 20MG TABLET PO SCH (07:07)
[2020-05-30] MEDS: DIVALPROEX SODIUM 500MG DR TABLET PO SCH ×2 (08:52→18:24)
[2020-05-30] MEDS: LEVETIRACETAM 1,500 MG in SODIUM CHLORIDE 0.9% 100 ML IV SCH (08:52)
[2020-05-30] MEDS: FERROUS SULFATE 325MG TABLET PO SCH (08:53)
[2020-05-30] MEDS: LAMOTRIGINE 25MG TABLET PO SCH (08:53)
[2020-05-30] MEDS: FUROSEMIDE 20MG/2ML VIAL IVP SCH (08:53)
[2020-05-30] MEDS: TAMSULOSIN HCL 0.4MG SR CAPSULE PO SCH (08:54)
[2020-05-30] MEDS: ATORVASTATIN CALCIUM 10MG TABLET PO SCH (17:00)
[2020-05-31] MEDS: ENOXAPARIN 40MG/0.4ML SYR SUBCUT SCH ×2 (01:32→21:29)
[2020-05-31] MEDS: FAMOTIDINE 20MG TABLET PO SCH ×3 (01:32→21:29)
[2020-05-31] MEDS: VANCOMYCIN 1 G PREMIX 200 ML IV SCH ×2 (01:46→09:18)
[2020-05-31 04:00] VITALS: BP 92/68
[2020-05-31] MEDS: CEFEPIME 1,000 MG in DEXTROSE 5% WATER 50 ML IV SCH (04:00)
[2020-05-31] MEDS: LEVETIRACETAM 1,500 MG in SODIUM CHLORIDE 0.9% 100 ML IV SCH ×3 (06:23→22:36)
[2020-05-31 08:00] VITALS: BP 97/61
[2020-05-31] MEDS: LAMOTRIGINE 25MG TABLET PO SCH (09:19)
[2020-05-31] MEDS: FERROUS SULFATE 325MG TABLET PO SCH (09:19)
[2020-05-31] MEDS: DIVALPROEX SODIUM 500MG DR TABLET PO SCH ×2 (09:19→17:28)
[2020-05-31] MEDS: TAMSULOSIN HCL 0.4MG SR CAPSULE PO SCH (09:19)
[2020-05-31] MEDS: FUROSEMIDE 20MG/2ML VIAL IVP SCH (09:20)
[2020-05-31 10:23] LABS: CHLORIDE 105 mEq/L (98-107)
[2020-05-31] MEDS: LINEZOLID 600 MG PREMIX 300 ML IV SCH ×2 (15:37→23:43)
[2020-05-31 16:00] VITALS: BP 95/57
[2020-05-31] MEDS: ATORVASTATIN CALCIUM 10MG TABLET PO SCH (17:29)
[2020-05-31 20:00] VITALS: BP 99/65
[2020-06-01] VITALS: BP 105/69
[2020-06-01 04:00] VITALS: BP 102/69
[2020-06-01] MEDS: FAMOTIDINE 20MG TABLET PO SCH ×2 (05:40→21:50)
[2020-06-01] MEDS: LAMOTRIGINE 25MG TABLET PO SCH (08:32)
[2020-06-01] MEDS: FUROSEMIDE 20MG/2ML VIAL IVP SCH (08:32)
[2020-06-01] MEDS: FERROUS SULFATE 325MG TABLET PO SCH (08:32)
[2020-06-01] MEDS: DIVALPROEX SODIUM 500MG DR TABLET PO SCH ×2 (08:32→16:52)
[2020-06-01] MEDS: LEVETIRACETAM 1,500 MG in SODIUM CHLORIDE 0.9% 100 ML IV SCH ×2 (08:56→22:45)
[2020-06-01] MEDS: TAMSULOSIN HCL 0.4MG SR CAPSULE PO SCH (09:00)
[2020-06-01 12:00] VITALS: BP 81/53
[2020-06-01] MEDS: LINEZOLID 600 MG PREMIX 300 ML IV SCH (12:25)
[2020-06-01 16:00] VITALS: BP 96/71
[2020-06-01] MEDS: ATORVASTATIN CALCIUM 10MG TABLET PO SCH (16:52)
[2020-06-01 20:00] VITALS: BP 93/59
[2020-06-01] MEDS: ENOXAPARIN 40MG/0.4ML SYR SUBCUT SCH (21:50)
[2020-06-01] MEDS: ACETAMINOPHEN 325MG TABLET PO PRN (21:51)
[2020-06-02] VITALS: BP 92/55
[2020-06-02] MEDS: LINEZOLID 600 MG PREMIX 300 ML IV SCH ×3 (00:01→23:41)
[2020-06-02 04:00] VITALS: BP 90/53
[2020-06-02] MEDS: FAMOTIDINE 20MG TABLET PO SCH ×2 (05:54→20:58)
[2020-06-02 08:00] VITALS: BP 98/70
[2020-06-02] MEDS: DIVALPROEX SODIUM 500MG DR TABLET PO SCH ×2 (08:44→16:03)
[2020-06-02] MEDS: LEVETIRACETAM 1,500 MG in SODIUM CHLORIDE 0.9% 100 ML IV SCH ×2 (08:45→21:25)
[2020-06-02] MEDS: FERROUS SULFATE 325MG TABLET PO SCH (08:45)
[2020-06-02] MEDS: FUROSEMIDE 20MG/2ML VIAL IVP SCH (08:45)
[2020-06-02] MEDS: LAMOTRIGINE 25MG TABLET PO SCH (08:45)
[2020-06-02 12:00] VITALS: BP 89/64
[2020-06-02] MEDS: TAMSULOSIN HCL 0.4MG SR CAPSULE PO SCH (12:38)
[2020-06-02 16:00] VITALS: BP 91/71
[2020-06-02] MEDS: ATORVASTATIN CALCIUM 10MG TABLET PO SCH (16:02)
[2020-06-02 20:00] VITALS: BP 87/56
[2020-06-02] MEDS ORDERED: SODIUM CHLORIDE 0.9% 500 ML IV ONE (20:30)
[2020-06-02] MEDS: ENOXAPARIN 40MG/0.4ML SYR SUBCUT SCH (20:58)
[2020-06-03] VITALS: BP 93/57
[2020-06-03 04:00] VITALS: BP 90/55
[2020-06-03] MEDS: FAMOTIDINE 20MG TABLET PO SCH ×2 (05:58→22:31)
[2020-06-03 08:00] VITALS: BP 95/62
[2020-06-03] MEDS: TAMSULOSIN HCL 0.4MG SR CAPSULE PO SCH (08:17)
[2020-06-03] MEDS: DIVALPROEX SODIUM 500MG DR TABLET PO SCH ×2 (08:18→16:38)
[2020-06-03] MEDS: FUROSEMIDE 20MG/2ML VIAL IVP SCH (08:18)
[2020-06-03] MEDS: FERROUS SULFATE 325MG TABLET PO SCH (08:18)
[2020-06-03] MEDS: LAMOTRIGINE 25MG TABLET PO SCH (08:18)
[2020-06-03] MEDS: LEVETIRACETAM 1,500 MG in SODIUM CHLORIDE 0.9% 100 ML IV SCH ×2 (10:52→22:32)
[2020-06-03 12:00] VITALS: BP 91/60
[2020-06-03] MEDS: LINEZOLID 600 MG PREMIX 300 ML IV SCH (13:01)
[2020-06-03 16:00] VITALS: BP 100/69
[2020-06-03] MEDS: ATORVASTATIN CALCIUM 10MG TABLET PO SCH (16:38)
[2020-06-03 20:00] VITALS: BP 96/64
[2020-06-03] MEDS: ENOXAPARIN 40MG/0.4ML SYR SUBCUT SCH (21:00)
[2020-06-03] MEDS: LINEZOLID 600MG TABLET PO SCH (22:31)
[2020-06-04] VITALS: BP 90/58
[2020-06-04 04:30] VITALS: BP 94/68
[2020-06-04] MEDS: FAMOTIDINE 20MG TABLET PO SCH ×2 (05:47→21:00)
[2020-06-04 08:00] VITALS: BP 114/71
[2020-06-04] MEDS: FERROUS SULFATE 325MG TABLET PO SCH (10:07)
[2020-06-04] MEDS: LEVETIRACETAM 1,500 MG in SODIUM CHLORIDE 0.9% 100 ML IV SCH ×2 (10:07→21:00)
[2020-06-04] MEDS: LINEZOLID 600MG TABLET PO SCH ×2 (10:08→21:00)
[2020-06-04] MEDS: DIVALPROEX SODIUM 500MG DR TABLET PO SCH ×2 (10:08→16:49)
[2020-06-04] MEDS: FUROSEMIDE 20MG/2ML VIAL IVP SCH (10:08)
[2020-06-04] MEDS: TAMSULOSIN HCL 0.4MG SR CAPSULE PO SCH (10:18)
[2020-06-04] MEDS: LAMOTRIGINE 25MG TABLET PO SCH (10:21)
[2020-06-04 12:00] VITALS: BP 113/84
[2020-06-04 16:00] VITALS: BP 116/79
[2020-06-04] MEDS: ATORVASTATIN CALCIUM 10MG TABLET PO SCH (16:49)
[2020-06-04 20:00] VITALS: BP 91/32
[2020-06-04] MEDS: ENOXAPARIN 40MG/0.4ML SYR SUBCUT SCH (23:09)
[2020-06-05] VITALS: BP 98/72
[2020-06-05 04:00] VITALS: BP 104/70
[2020-06-05] MEDS: FAMOTIDINE 20MG TABLET PO SCH (07:09)
[2020-06-05 08:00] VITALS: BP 126/80
[2020-06-05] MEDS: FERROUS SULFATE 325MG TABLET PO SCH (09:24)
[2020-06-05] MEDS: DIVALPROEX SODIUM 500MG DR TABLET PO SCH (09:24)
[2020-06-05] MEDS: LINEZOLID 600MG TABLET PO SCH (09:24)
[2020-06-05] MEDS: TAMSULOSIN HCL 0.4MG SR CAPSULE PO SCH (09:25)
[2020-06-05] MEDS: LAMOTRIGINE 25MG TABLET PO SCH (09:25)
[2020-06-05] MEDS: FUROSEMIDE 20MG/2ML VIAL IVP SCH (09:27)
[2020-06-05] MEDS: LEVETIRACETAM 1,500 MG in SODIUM CHLORIDE 0.9% 100 ML IV SCH (11:24)
== END 2020-06-05 12:53 | disposition expired | DRG 871 ==
LOC: ER 14:41 → MICUSO 18:28 → EDBEDREQTM 18:34 → EDBEDREQ 18:34 → 8WST 05-12 00:43 → MICUSO 05-17 03:20 → 7EST 05-17 12:46
PROVIDERS: ADMIT Internal Medicine; ATTEND Internal Medicine
PROC: 02HV33Z Insertion of Infusion Device into Superior Vena Cava, Percutaneous Approach (ICD-10-PCS; principal; 2020-05-17)
PROC: B548ZZA Ultrasonography of Superior Vena Cava, Guidance (ICD-10-PCS; 2020-05-17)
PROC: 5A09457 Assistance with Respiratory Ventilation, 24-96 Consecutive Hours, Continuous Positive Airway Pressure (ICD-10-PCS; 2020-05-17)
PROC: 5A09357 Assistance with Respiratory Ventilation, Less than 24 Consecutive Hours, Continuous Positive Airway Pressure (ICD-10-PCS; 2020-05-19)
PROC: 5A09357 Assistance with Respiratory Ventilation, Less than 24 Consecutive Hours, Continuous Positive Airway Pressure (ICD-10-PCS; 2020-05-20)
PROC: 5A09357 Assistance with Respiratory Ventilation, Less than 24 Consecutive Hours, Continuous Positive Airway Pressure (ICD-10-PCS; 2020-05-22)
PROC: 5A09357 Assistance with Respiratory Ventilation, Less than 24 Consecutive Hours, Continuous Positive Airway Pressure (ICD-10-PCS; 2020-05-23)
PROC: 5A09457 Assistance with Respiratory Ventilation, 24-96 Consecutive Hours, Continuous Positive Airway Pressure (ICD-10-PCS; 2020-05-23)
PROC: 5A09457 Assistance with Respiratory Ventilation, 24-96 Consecutive Hours, Continuous Positive Airway Pressure (ICD-10-PCS; 2020-05-26)
PROC: 5A09357 Assistance with Respiratory Ventilation, Less than 24 Consecutive Hours, Continuous Positive Airway Pressure (ICD-10-PCS; 2020-05-31)
PROC: 5A09357 Assistance with Respiratory Ventilation, Less than 24 Consecutive Hours, Continuous Positive Airway Pressure (ICD-10-PCS; 2020-06-01)
PROC: 5A09357 Assistance with Respiratory Ventilation, Less than 24 Consecutive Hours, Continuous Positive Airway Pressure (ICD-10-PCS; 2020-06-02)
PROC: 5A09357 Assistance with Respiratory Ventilation, Less than 24 Consecutive Hours, Continuous Positive Airway Pressure (ICD-10-PCS; 2020-06-05)
DX: A41.89 Other specified sepsis (principal); J96.01 Acute respiratory failure with hypoxia; U07.1 COVID-19; R65.21 Severe sepsis with septic shock; J12.82 Pneumonia due to coronavirus disease 2019; J69.0 Pneumonitis due to inhalation of food and vomit; N39.0 Urinary tract infection, site not specified; Z16.21 Resistance to vancomycin; G93.40 Encephalopathy, unspecified; B96.89 Other specified bacterial agents as the cause of diseases classified elsewhere; D50.9 Iron deficiency anemia, unspecified; B97.89 Other viral agents as the cause of diseases classified elsewhere; I10 Essential (primary) hypertension; E78.5 Hyperlipidemia, unspecified; G40.909 Epilepsy, unspecified, not intractable, without status epilepticus; B96.20 Unspecified Escherichia coli [E. coli] as the cause of diseases classified elsewhere; N40.1 Benign prostatic hyperplasia with lower urinary tract symptoms; D69.6 Thrombocytopenia, unspecified; Z79.899 Other long term (current) drug therapy
CPT/HCPCS: 36415; 36600; 71045; 76937; 80048; 80053; 80061; 80076; 80165; 80202; 80305; 80307; 80320; 80329; 81003; 82140; 82306; 82375; 82378; 82542; 82607; 82805; 82962; 83540; 83550; 83605; 83735; 83880; 83930; 84100; 84153; 84443; 84484; 85025; 85044; 85379; 86592; 87077; 87186; 87426; 87635; 93005; 93970; 94660; 99285; C1725; C1893; C9113; J0692; J0696; J1650; J1940; J1953; J1956; J2020; J2060; J2543; J3370; J3490; J7030; J7040; J7050; J7060; J8540; U0003; G0103; G0480